=== PATIENT | male | born 1990 | race Two or more races ===

== ENCOUNTER 2023-07-15 19:28 | Emergency (ER) | payer BC, SELFPAY ==
--- NOTE | ~2023-07-15 | XR_ITS ---
Left Hand Technique: PA, oblique, and lateral views were obtained. Clinical History: Fifth finger injury Findings: There is an oblique, volar angulation fracture the distal fifth metacarpal neck. No other f racture or dislocation seen. Joint spaces are preserved. Soft tissues are unremarkable. Impression: Acute, oblique, volar angulated fracture of the distal fifth metacarpal neck. Reviewed, dictated and finalized at location . Impression: Acute, oblique, volar angulated fracture of the distal fifth metacarpal neck.
[2023-07-15 19:31] VITALS: BP 126/81; PULSE 77; RESP 15; TEMP 36.6; O2SAT 98
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
[2023-07-16] MEDS: IBUPROFEN 600 MG TABLET PO (00:57)
== END 2023-07-16 01:55 | disposition home or self-care (01) ==
LOC: ANHED 07-16 01:30
PROVIDERS: Emergency Provider Physician Assistant
DX: S62.337A Displaced fracture of neck of fifth metacarpal bone, left hand, initial encounter for closed fracture (principal); V49.9XXA Car occupant (driver) (passenger) injured in unspecified traffic accident, initial encounter
CPT/HCPCS: 29125; 73130; 99284; A9270